=== PATIENT | male | born 1965 | race Hispanic/Latino ===

== ENCOUNTER 2018-07-23 12:47 | Inpatient (IN) | payer MEDICAID, OTHER ==
[2018-07-23 12:52] VITALS: BMI 26.4
[2018-07-23] MEDS ORDERED: Albuterol-Ipratrop 3 mg / 0.5 (3 ml) UD IH STA (13:25)
[2018-07-23] MEDS ORDERED: MethylPREDNISolone 40 mg Vial IM STA (13:25)
--- NOTE | 2018-07-23 13:25 | ED PDOC ---
Arrival/HPI - General Chief Complaint: Shortness Of Breath Time Seen by Provider: 07/23/18 12:52 Historian: Patient - History of Present Illness Narrative History of Present Illness (Text): 07/23/18 13:21 A 53 y/o w/ h/o COPD, presents to the emergency department complaining of persistent shortness of breath and chest tightness for 1 day. Patient reports he tried using his rescue inhaler but has had no relief. He denies no recent use of steroids or exposure to sick contacts. Patient notes also experiencing occasional chills, however denies fever or any other complaints at this time. No PMD Time/Duration: 24 hours Symptom Onset: Sudden Symptom Course: Worsening Quality: Tightness Severity Level: Moderate Activities at Onset: Rest Context: Home Past Medical History - Provider Review Nursing Documentation Reviewed: Yes - Travel History Have you recently traveled outside [place] w/in the past 3 mons?: No - Infectious Disease Hx of Infectious Diseases: None - Tetanus Immunization Tetanus Immunization: Unknown - Past Medical History Past Medical History: Non-Contributing - Cardiac Hx Cardiac Disorders: No - Pulmonary Hx Respiratory Disorders: Yes Hx Chronic Obstructive Pulmonary Disease (COPD): Yes Hx Emphysema: Yes Hx Pneumonia: Yes Hx Sleep Apnea: Yes - Neurological Hx Neurological Disorder: No - HEENT Hx HEENT Disorder: No - Renal Hx Renal Disorder: No Hx Dialysis: No - Endocrine/Metabolic Hx Endocrine Disorders: No - Hematological/Oncological Hx Blood Disorders: No - Integumentary Hx Dermatological Disorder: No - Musculoskeletal/Rheumatological Hx Musculoskeletal Disorders: Yes Hx Back Pain: Yes Hx Falls: No - Gastrointestinal Hx Gastrointestinal Disorders: No - Genitourinary/Gynecological Hx Genitourinary Disorders: No Hx Sexually Transmitted Diseases: No - Psychiatric Hx Psychophysiologic Disorder: Yes Hx Depression: Yes Hx Substance Use: Yes (use heroin Occasionally) - Past Surgical History Past Surgical History: No Previous - Anesthesia Hx Anesthesia: No - Suicidal Assessment Feels Threatened In Home Enviroment: No Family/Social History - Physician Review Nursing Documentation Reviewed: Yes Family/Social History: No Known Family HX Smoking Status: Current Some Days Smoker Hx Alcohol Use: Yes Amount per day: 12 Hx Substance Use: Yes (use heroin Occasionally) Substance used: HEROIN Hx Substance Use Treatment: Yes (had detox) Allergies/Home Meds Allergies/Adverse Reactions: Allergies No Known Allergies Allergy (Verified 07/23/18 18:57) Review of Systems - Physician Review All systems were reviewed & negative as marked: Yes - Review of Systems Constitutional: Night Sweats. absent: Fevers Respiratory: SOB Cardiovascular: Other (chest tightness) Physical Exam Vital Signs Reviewed: Yes Vital Signs Temp Pulse Resp BP Pulse Ox 07/23/18 17:31 98.0 F 83 18 97 07/23/18 17:05 98.0 F 84 19 132/80 97 07/23/18 13:24 98.2 F 82 19 132/79 94 L 07/23/18 12:53 20 97 Pulse: Tachycardic Respiratory Rate: Tachypneic - Systems Exam Head: Present: Atraumatic, Normocephalic Pupils: Present: PERRL Extroacular Muscles: Present: EOMI Conjunctiva: Present: Normal Mouth: Present: Moist Mucous Membranes Respiratory/Chest: Present: Wheezes (expiratory and inspiratory bilaterally), Rhonchi, Tachypneic Cardiovascular: Present: Tachycardic Abdomen: No: Tenderness, Distention, Peritoneal Signs Upper Extremity: Present: Normal Inspection. No: Cyanosis, Edema Lower Extremity: Present: Normal Inspection. No: Edema Neurological: Present: GCS=15, CN II-XII Intact, Speech Normal Skin: Present: Warm, Dry, Normal Color. No: Rashes Psychiatric: Present: Alert, Oriented x 3, Normal Insight, Normal Concentration Medical Decision Making ED Course and Treatment: 07/23/18 13:25 Impression: 53 year old male with shortness of breath and chest tightness Plan: -- Chest X-ray -- Labs -- Duoneb -- Zithromax -- SOLU-Medrol -- Reassess and disposition Progress Notes: 07/23/2018 13:56 Chest X-ray IMPRESSION: No active disease. Dictator: Vick Peck MD 07/23/18 15:30 Patient reassessed after 3 nebulizer treatments, reporting minimal change in respiratory status. Expiratory wheezes auscultated b/l in anterior lung noe. Will administer additional nebulizer treatment. Case discussed with Dr. Art, who accepts patient under her service. Patient will be admitted under Observation w/ telemetry. - Lab Interpretations Lab Results: 07/24/18 06:30 07/24/18 10:30 Lab Results 07/24/18 10:30: Potassium 4.3 07/24/18 06:30: Sodium 139, Potassium 5.6 H*, Chloride 102, Carbon Dioxide 24, Anion Gap 18, BUN 11, Creatinine 0.6 L, Est GFR ( Amer) > 60, Est GFR ( Non-Af Amer) > 60, Random Glucose 181 H, Calcium 10.4, Phosphorus 4.2, Magnesium 1.8, Total Bilirubin 0.6, AST 23, ALT 29, Alkaline Phosphatase 59, Total Protein 7.7, Albumin 4.8, Globulin 2.9, Albumin/Globulin Ratio 1.7 07/24/18 06:30: APTT 29.6 07/24/18 06:30: WBC 12.4 H D, RBC 4.66, Hgb 14.2, Hct 42.4, MCV 91.0, MCH 30.5, MCHC 33.5, RDW 14.5, Plt Count 428, MPV 9.6, Gran % 88.2 H, Lymph % (Auto) 7.5 L , [place] % (Auto) 4.2, Eos % (Auto) 0.0 L, Baso % (Auto) 0.1, Gran # 10.98 H, Lymph # (Auto) 0.9 L, [place] # (Auto) 0.5, Eos # (Auto) 0.0, Baso # (Auto) 0.01 07/23/18 21:11: Alcohol, Quantitative < 10 07/23/18 19:55: Phosphorus 3.9, Magnesium 1.6 L 07/23/18 14:35: Sodium 140, Potassium 4.7, Chloride 102, Carbon Dioxide 25, Anion Gap 19, BUN 7, Creatinine 0.7 L, Est GFR ( Amer) > 60, Est GFR (Non -Af Amer) > 60, Random Glucose 102, Calcium 10.3, Magnesium 1.7, Total Bilirubin 0.7, AST 38, ALT 31, Alkaline Phosphatase 64, Troponin I < 0.01, Total Protein 8.4 H, Albumin 5.1 H, Globulin 3.3, Albumin/Globulin Ratio 1.5 07/23/18 14:35: WBC 7.4, RBC 4.61, Hgb 14.2, Hct 41.8 L, MCV 90.7, MCH 30.8, MCHC 34.0, RDW 14.5, Plt Count 416, MPV 9.2, Gran % 72.8 H, Lymph % (Auto) 16.9 L, [place] % (Auto) 9.1 H, Eos % (Auto) 0.4 L, Baso % (Auto) 0.8, Gran # 5.39, Lymph # (Auto) 1.3, [place] # (Auto) 0.7 H, Eos # (Auto) 0.0, Baso # (Auto) 0.06 I have reviewed the lab results: Yes - RAD Interpretation Radiology Orders: 07/23/18 13:25 CHEST PORTABLE [RAD] Stat - Medication Orders Current Medication Orders: Discontinued Medications Albuterol Sulfate (Albuterol 0.083% Inhal Joanne (2.5 Mg/3 Ml) Ud) 2.5 mg INH STAT STA Stop: 07/23/18 15:05 Last Admin: 07/23/18 15:19 Dose: 2.5 mg Albuterol/Ipratropium (Duoneb 3 Mg/0.5 Mg (3 Ml) Ud) 3 ml IH STAT STA Stop: 07/23/18 13:26 Last Admin: 07/23/18 15:00 Dose: 3 ml Albuterol/Ipratropium (Duoneb 3 Mg/0.5 Mg (3 Ml) Ud) 3 ml IH Q2H PRN PRN Reason: Shortness of Breath Albuterol/Ipratropium (Duoneb 3 Mg/0.5 Mg (3 Ml) Ud) 3 ml IH [id number] [facility] Last Admin: 07/27/18 08:04 Dose: 3 ml Azithromycin (Zithromax) 500 mg PO STAT STA PRN Reason: Protocol Stop: 07/23/18 13:26 Last Admin: 07/23/18 15:19 Dose: 500 mg Azithromycin (Zithromax) 500 mg PO DAILY [facility] Last Admin: 07/27/18 09:44 Dose: 500 mg Folic Acid (Folic Acid) 1 mg PO DAILY [facility] Last Admin: 07/27/18 09:44 Dose: 1 mg Guaifenesin (Mucinex La) 600 mg PO BID [facility] Last Admin: 07/27/18 09:44 Dose: 600 mg Heparin Sodium (Porcine) (Heparin) 5,000 units SC Q12 ADRIAN PRN Reason: Protocol Heparin Sodium (Porcine) (Heparin) 5,000 units SC Q8 ADRIAN PRN Reason: Protocol Last Admin: 07/27/18 05:08 Dose: 5,000 units Subcutaneous Administrations Document 07/27/18 05:08 OLIVD (Rec: 07/27/18 05:08 OLIVD [email or web address]) Injection Site MAR Injection Site Right Abdomen Charges for Administration # of Subcutaneous Administrations 1 Folic Acid 1 mg/ Thiamine HCl 100 mg/ Multivitamins/Vitamin C 10 ml/ Dextrose 1 ,011.2 mls @ 100 mls/hr IV .Q10H7M ADRIAN Stop: 07/24/18 12:58 Last Admin: 07/24/18 10:18 Dose: 100 mls/hr eMAR Start Stop Document 07/24/18 10:18 CD (Rec: 07/24/18 10:18 CD [id number]) Intravenous Solution Start Date 07/24/18 Start Time 10:18 Azithromycin (Zithromax 500mg In Ns) 500 mg in 250 mls @ 167 mls/hr IVPB DAILY ADRIAN PRN Reason: Protocol Last Admin: 07/26/18 10:48 Dose: 167 mls/hr eMAR Start Stop Document 07/26/18 10:48 VS (Rec: 07/26/18 10:49 VS [id number]) Intravenous Solution Start Date 07/26/18 Start Time 10:48 End Date 07/26/18 End time 12:18 Total Infusion Time 90 Lorazepam (Ativan) 1 mg IVP Q6 ADRIAN PRN Reason: Protocol Last Admin: 07/24/18 12:38 Dose: 1 mg IVP Administration Document 07/24/18 12:38 CD (Rec: 07/24/18 12:38 CD [place] [id number]) Charges for Administration # of IVP Administrations 1 Behavioural Document 07/24/18 12:38 CD (Rec: 07/24/18 12:38 CD [place] [id number]) Maintenance Maintenance Dose No Nonmedicinal Nonmedicinal Interventions Therapeutic Communication Behavior Behavior for Medication: Continuous pacing/restlessness Re-Assess: Reassess Psych Meds Document 07/24/18 13:08 CD (Rec: 07/24/18 13:46 CD [place] [id number]) Reassess Psych Med Effective Lorazepam (Ativan) 1 mg IVP Q8H PRN; Protocol PRN Reason: Symptoms of alcohol withdrawl Lorazepam (Ativan) 1 mg IVP Q8 ADRIAN PRN Reason: Protocol Last Admin: 07/25/18 06:45 Dose: 1 mg IVP Administration Document 07/25/18 06:45 LGA (Rec: 07/25/18 06:45 LGA [id number]) Charges for Administration # of IVP Administrations 1 Behavioural Document 07/25/18 06:45 LGA (Rec: 07/25/18 06:45 LGA [id number]) Maintenance Maintenance Dose Yes Nonmedicinal Nonmedicinal Interventions Redirect Therapeutic Communication Activity Behavior Behavior for Medication: Anxiety Continuous pacing/restlessness Insomnia Re-Assess: Reassess Psych Meds Document 07/25/18 07:15 CD (Rec: 07/25/18 08:13 CD [facility] [id number]) Reassess Psych Med Effective Lorazepam (Ativan) 1 mg IVP Q6H PRN; Protocol PRN Reason: Symptoms of alcohol withdrawl Last Admin: 07/25/18 13:46 Dose: 1 mg IVP Administration Document 07/25/18 13:46 CD (Rec: 07/25/18 13:46 CD [id number]) Charges for Administration # of IVP Administrations 1 Behavioural Document 07/25/18 13:46 CD (Rec: 07/25/18 13:46 CD [id number]) Nonmedicinal Nonmedicinal Interventions Activity Behavior Behavior for Medication: Anxiety Re-Assess: Reassess Psych Meds Document 07/25/18 14:16 CD (Rec: 07/25/18 14:[address] [facility] [id number]) Reassess Psych Med Effective Methylprednisolone (Solu-Medrol) 125 mg IM STAT STA Stop: 07/23/18 13:30 Last Admin: 07/23/18 15:19 Dose: 125 mg IM Administration Charges Document 07/23/18 15:19 SZA (Rec: 07/23/18 15:19 SZA [id number]) Charges for Administration # of IM Administrations 1 Methylprednisolone (Solu-Medrol) 40 mg IVP Q8 [facility] Last Admin: 07/25/18 06:45 Dose: 40 mg IVP Administration Document 07/25/18 06:45 LGA (Rec: 07/25/18 06:45 LGA [id number]) Charges for Administration # of IVP Administrations 1 Methylprednisolone (Solu-Medrol) 40 mg IVP Q12 ADRIAN Last Admin: 07/27/18 09:43 Dose: 40 mg IVP Administration Document 07/27/18 09:43 [id number] (Rec: 07/27/18 09:43 SOUSV [email or web address]) Charges for Administration # of IVP Administrations 1 Montelukast Sodium (Singulair) 10 mg PO HS [facility] Last Admin: 07/26/18 21:28 Dose: 10 mg Multivitamins (Thera Tab) 1 tab PO DAILY [facility] Last Admin: 07/27/18 09:44 Dose: 1 tab Nicotine (Nicoderm Cq) 1 patch TD DAILY [facility] Last Admin: 07/27/18 09:44 Dose: 1 patch MAR Transdermal Patch Site Document 07/27/18 09:44 [email or web address] (Rec: 07/27/18 09:44 SOUSV [email or web address]) Transdermal Patch Site Transdermal Patch Site Right Shoulder Ondansetron HCl (Zofran Inj) 4 mg IVP Q4H PRN PRN Reason: Nausea/Vomiting Pantoprazole Sodium (Protonix Ec Tab) 40 mg PO 0600 [facility] Last Admin: 07/27/18 05:08 Dose: 40 mg Pneumococcal Polyvalent Vaccine (Pneumovax 23 Vaccine) 0.5 ml IM .ONCE ONE Stop: 07/23/18 20:48 Thiamine HCl (Vitamin B1 Tab) 100 mg PO DAILY [facility] Last Admin: 07/27/18 09:44 Dose: 100 mg - Scribe Statement The provider has reviewed the documentation as recorded by the Ronaldo Camilo Provider Scribe Provider Scribe Attestation: All medical record entries made by the Ronaldo were at my direction and personally dictated by me. I have reviewed the chart and agree that the record accurately reflects my personal performance of the history, physical exam, medical decision making, and the department course for this patient. I have also personally directed, reviewed, and agree with the discharge instructions and disposition. Disposition/Present on Arrival - Present on Arrival Any Indicators Present on Arrival: No History of DVT/PE: No History of Uncontrolled Diabetes: No Urinary Catheter: No History of Decub. Ulcer: No History Surgical Site Infection Following: None - Disposition Have Diagnosis and Disposition been Completed?: Yes Diagnosis: COPD exacerbation Disposition: HOSPITALIZED Disposition Time: 15:30 Patient Plan: Observation Condition: GOOD
--- NOTE | 2018-07-23 13:58 | RAD ---
Date of service: 07/23/2018 HISTORY: sob COMPARISON: 05/29/2015 FINDINGS: LUNGS: No active pulmonary disease. PLEURA: No significant pleural effusion identified, no pneumothorax apparent. CARDIOVASCULAR: Normal. OSSEOUS STRUCTURES: No significant abnormalities. VISUALIZED UPPER ABDOMEN: Normal. OTHER FINDINGS: None. IMPRESSION: No active disease.
[2018-07-23 14:50] LABS: BASO # 0.06 K/mm3 (0.0-2.0); BASO % 0.8 % (0.0-3.0); EOS % 0.4 % (1.5-5.0); GRAN # 5.39 (1.4-6.5); GRAN % 72.8 % (50.0-68.0); HEMOGLOBIN 14.2 g/dL (14.0-18.0); LYMPH # 1.3 (1.2-3.4); LYMPH % 16.9 % (22.0-35.0); MEAN CELL VOLUME 90.7 fl (80.0-105.0); MEAN CORPUSCULAR HEMOGLOBIN 30.8 pg (25.0-35.0); MEAN PLATELET VOLUME 9.2 fl (7.0-11.0); MONO # 0.7 (0.1-0.6); MONO % 9.1 % (1.0-6.0); RBC 4.61 10^6/uL (3.5-6.1); RED CELL DISTRIBUTION WIDTH 14.5 % (11.5-14.5); WHITE BLOOD COUNT 7.4 10^3/ul (4.5-11.0)
[2018-07-23 15:03] LABS: ALB/GLOB RATIO 1.5 (1.1-1.8); ALBUMIN 5.1 g/dL (3.0-4.8); ALT/SGPT 31 U/L (7-56); AST/SGOT 38 U/L (17-59); BLOOD UREA NITROGEN 7 mg/dL (7-21); CALCIUM 10.3 mg/dL (8.4-10.5); GFR NON-AFRICAN AMERICAN > 60
[2018-07-23] MEDS ORDERED: Albuterol 0.083% Inhal Sol (2.5 mg/3 mL) UD INH STA (15:04)
[2018-07-23 15:13] LABS: TROPONIN I < 0.01 ng/mL
[2018-07-23] MEDS ORDERED: Albuterol-Ipratrop 3 mg / 0.5 (3 ml) UD IH PRN (16:40)
--- NOTE | 2018-07-23 18:04 | CP.PCM.HP ---
<Bobo Medina - Last Filed: 07/23/18 18:21> History of Present Illness - History of Present Illness History of Present Illness: Bobo Medina DO PGY-1, Senior Marketing Manager Medicine History and Physical 53 y o male PMhx COPD, EtOH, smoking and heroin abuse, presents to the ED today c/o 1 day history of worsening shortness of breath and chest tightness. Pt states that he tried using Ventolin rescue inhaler at home 3 times for symptoms without relief, thus decided to come to the ED. Reports feeling short of breath after walking 10 blocks outside. Denies hx of sick contacts or recent travel. Denies fever or chills. Reports productive cough with "[place]green" sputum since yesterday. Admits to associated lightheadedness. Denies headache, chest pain, n/ v/d/c, abd pain, urinary complaints, or other symptoms. No prior hx of intubations. PMhx: COPD, EtOH abuse, smoker, prior heroin abuse PSurgHx: none Allergies: NKDA Meds: Ventolin inhaler, Fluticasone, Ambien, Singulair Fam hx: Unremarkable cardiac hx or hx of malignancies Soc hx: Smokes 10 cigarettes/day, cut down from 1 ppd for 30 y, drinks (6) 24 oz beers almost every day (last drink was yesterday as per patient), former heroin use (used to snort drug) PMD: Dr. West ([place]); does not follow with hardware trainer outpatient 12-point ROS obtained, as per HPI, otherwise negative as per patient. Present on Admission - Present on Admission Any Indicators Present on Admission: No Review of Systems - Constitutional Constitutional: Fatigue, Weakness. absent: Chills, Fever - EENT Nose/Mouth/Throat: absent: Epistaxis, Nasal Congestion, Nasal Discharge, Post Nasal Drip, Sinus Pain, Hoarsness, Odynophagia, Sore Throat - Cardiovascular Cardiovascular: Dyspnea on Exertion. absent: Chest Pain, Edema, Pain Radiating to Arm/Neck/Jaw, Palpitations, Paroxysmal Nocturnal Dyspnea, Pedal Edema - Respiratory Respiratory: Cough, Dyspnea, Dyspnea on Exertion, Wheezing, Chest Congestion, Excessive Mucous Production - Gastrointestinal Gastrointestinal: absent: Abdominal Pain, Change in Bowel Habits, Constipation, Diarrhea, Vomiting - Genitourinary Genitourinary: absent: Dysuria, Flank Pain, Hematuria, Urinary Incontinence, Urinary Frequency, Urinary Urgency Past Patient History - Infectious Disease Hx of Infectious Diseases: None - Tetanus Immunizations Tetanus Immunization: Unknown - Past Medical History & Family History Past Medical History?: Yes - Past Social History Smoking Status: Current Some Days Smoker - CARDIAC Hx Cardiac Disorders: No - PULMONARY Hx Respiratory Disorders: Yes Hx Chronic Obstructive Pulmonary Disease (COPD): Yes Hx Emphysema: Yes Hx Pneumonia: Yes Hx Sleep Apnea: Yes - NEUROLOGICAL Hx Neurological Disorder: No - HEENT Hx HEENT Problems: No - RENAL Hx Chronic Kidney Disease: No Hx Dialysis: No - ENDOCRINE/METABOLIC Hx Endocrine Disorders: No - HEMATOLOGICAL/ONCOLOGICAL Hx Blood Disorders: No - INTEGUMENTARY Hx Dermatological Problems: No - MUSCULOSKELETAL/RHEUMATOLOGICAL Hx Musculoskeletal Disorders: Yes Hx Back Pain: Yes Hx Falls: No - GASTROINTESTINAL Hx Gastrointestinal Disorders: No - GENITOURINARY/GYNECOLOGICAL Hx Genitourinary Disorders: No Hx Sexually Transmitted Disorders: No - PSYCHIATRIC Hx Psychophysiologic Disorder: Yes Hx Depression: Yes Hx Substance Use: Yes (use heroin Occasionally) - SURGICAL HISTORY Hx Surgeries: No - ANESTHESIA Hx Anesthesia: No Meds Allergies/Adverse Reactions: Allergies Allergy/AdvReac Type Severity Reaction Status Date / Time No Known Allergies Allergy Verified 07/23/18 18:57 Physical Exam - Constitutional Appears: Non-toxic, No Acute Distress - Head Exam Head Exam: ATRAUMATIC, NORMAL INSPECTION - Eye Exam Eye Exam: EOMI, Normal appearance, PERRL - ENT Exam ENT Exam: Mucous Membranes Moist, Normal Oropharynx - Neck Exam Neck exam: Positive for: Full Rom, Normal Inspection - Respiratory Exam Respiratory Exam: NORMAL BREATHING PATTERN Additional comments: Coarse breath sounds and wheezing heard diffusely in all lung noe - Cardiovascular Exam Cardiovascular Exam: REGULAR RHYTHM, +S1, +S2 - GI/Abdominal Exam GI & Abdominal Exam: Normal Bowel Sounds, Soft. absent: Tenderness - Extremities Exam Extremities exam: Positive for: full ROM, normal capillary refill, normal inspection, pedal pulses present - Back Exam Back exam: FULL ROM, NORMAL INSPECTION - Neurological Exam Neurological exam: Alert, CN II-XII Intact, Normal Gait, Oriented x3, Reflexes Normal - Psychiatric Exam Psychiatric exam: Normal Affect, Normal Mood - Skin Skin Exam: Dry, Intact, Normal Color, Warm Results - Vital Signs Recent Vital Signs: Last Vital Signs Temp 98.0 F 07/23/18 17:31 Pulse 83 07/23/18 17:31 Resp 18 07/23/18 17:31 BP 132/80 07/23/18 17:05 Pulse Ox 97 07/23/18 17:31 - Labs Result Diagrams: 07/23/18 14:35 07/23/18 14:35 Assessment & Plan - Assessment and Plan (Free Text) Assessment: 53M PMhx COPD, EtOH abuse, smoking, former heroin abuse, presents with shortness of breath and chest tightness, likely 2/2 to COPD exacerbation. Pt also being medically managed for EtOH withdrawal. Plan: COPD exacerbation/acute bronchitis S/p duoneb tx in ED with some relief of symptoms CXR in ED demonstrated no active disease Zithromax 500 mg IVPB daily Duonebs q 2 prn, and q 6 h janine for shortness of breath Solu-Medrol 40 mg q 8 h IVP Singulair 10 mg PO daily EtOH withdrawal CIWA protocol Ativan 1 mg q 6 h Ativan 1 mg q 8 h prn withdrawal symptoms Zofran prn for nausea F/u Mg and P levels, replete as needed Alcohol level pending Current smoker Nicotine patch Hx heroin abuse Urine drug screen pending DVT/GI ppx: Heparin q 8 h/Protonix Pt seen, examined with, and plan discussed with Dr. Art, attending. Bobo Medina DO PGY-1, Senior Marketing Manager Pager #[phone] <Norma Art R - Last Filed: 07/24/18 15:51> Results - Vital Signs Recent Vital Signs: Last Vital Signs Temp 98.7 F 07/24/18 12:00 Pulse 82 07/24/18 14:00 Resp 21 07/24/18 12:00 BP 123/81 07/24/18 12:00 Pulse Ox 95 07/24/18 06:00 - Labs Result Diagrams: 07/24/18 06:30 07/24/18 10:30 Labs: Laboratory Results - last 24 hr 07/23/18 07/23/18 07/24/18 19:55 21:11 06:30 WBC 12.4 H D RBC 4.66 Hgb 14.2 Hct 42.4 MCV 91.0 MCH 30.5 MCHC 33.5 RDW 14.5 Plt Count 428 MPV 9.6 Gran % 88.2 H Lymph % (Auto) 7.5 L [place] % (Auto) 4.2 Eos % (Auto) 0.0 L Baso % (Auto) 0.1 Gran # 10.98 H Lymph # (Auto) 0.9 L [place] # (Auto) 0.5 Eos # (Auto) 0.0 Baso # (Auto) 0.01 APTT Sodium Potassium Chloride Carbon Dioxide Anion Gap BUN Creatinine Est GFR ( Amer) Est GFR (Non-Af Amer) Random Glucose Calcium Phosphorus 3.9 Magnesium 1.6 L Total Bilirubin AST ALT Alkaline Phosphatase Total Protein Albumin Globulin Albumin/Globulin Ratio Alcohol, Quantitative < 10 07/24/18 07/24/18 07/24/18 06:30 06:30 10:30 WBC RBC Hgb Hct MCV MCH MCHC RDW Plt Count MPV Gran % Lymph % (Auto) [place] % (Auto) Eos % (Auto) Baso % (Auto) Gran # Lymph # (Auto) [place] # (Auto) Eos # (Auto) Baso # (Auto) APTT 29.6 Sodium 139 Potassium 5.6 H* 4.3 Chloride 102 Carbon Dioxide 24 Anion Gap 18 BUN 11 Creatinine 0.6 L Est GFR ( Amer) > 60 Est GFR (Non-Af Amer) > 60 Random Glucose 181 H Calcium 10.4 Phosphorus 4.2 Magnesium 1.8 Total Bilirubin 0.6 AST 23 ALT 29 Alkaline Phosphatase 59 Total Protein 7.7 Albumin 4.8 Globulin 2.9 Albumin/Globulin Ratio 1.7 Alcohol, Quantitative Attending/Attestation - Attestation I have personally seen and examined this patient.: Yes I have fully participated in the care of the patient.: Yes I have reviewed all pertinent clinical information: Yes Notes (Text): Patient seen and examined by me at 5PM with resident 07/23/18. Case including HPI , physical exam, and assessment and plan discussed with resident. Agree with above with following additions/corrections. Patient is a 53 year old male with past medical history significant for COPD, tobacco abuse, alcohol abuse, and heroin abuse that presented to the emergency room with shortness of breath and chest tightness to begin yesterday (07/22/18) and became worse today. Patient states that he noticed that he was a little bit out of breath yesterday and had "[place] green phlegm." He states this morning he woke up and got out of bed and tried to walk approximately 5 blocks at which time he felt like he couldn't breathe. He then came to the hospital. He states that he tried Ventolin and Advair with no relief. Complains of productive cough with "[place]green" phlegm. Patient states is also having some chest tightness and lightheadedness with this. He denies any chest pain. No headaches or dizziness. No nausea, vomiting, or abdominal pain. No fevers or chills. No dysuria. No diarrhea or constipation. Patient states that he does drink 5-6 24 ounce cans of beer daily. He states his last drink was yesterday and he does tend to withdraw when he does not drink. 12 point review of systems reviewed by me. Please see above HPI. All other systems negative Family history. Mother of brain aneursym. Father and had history of ETOH and tobacco abuse. Physical exam: General: Awake and alert, lying in bed in no acute distress HEENT: Normocephalic, atraumatic. Extraocular muscles intact. No scleral icterus. Oropharynx is pink and moist. No pharyngeal erythema or exudate appreciated. Neck is supple. Cardiovascular: Normal rhythm. Normal S1, S2. No murmurs, rubs, or gallops appreciated Pulmonary: Normal respiratory effort. Positive rhonchi and wheezing throughout. No rales appreciated. Gastrointestinal: Soft, nondistended, nontender. Positive bowel sounds all 4 quadrants, no guarding. Musculoskeletal: Moves all extremities, no calf tenderness, no edema appreciated Central nervous system: CN2-12 grossly intact. AAO x 3, positive tremors noted in upper extremities Dermatologic: Skin warm and dry Assessment and plan: Patient is a 53 year old male with past medical history significant for COPD, tobacco abuse, alcohol abuse, and heroin abuse that presented to the emergency room with shortness of breath and chest tightness. 1. COPD exacerbation. Placed on Solu-Medrol and nebulizer treatment. Patient counseled on tobacco cessation. Placed on Zithromax for possible bronchitis as patient is having productive cough. Continue home Singulair 2. ETOH use/withdrawal. Placed on CIWA protocol. Placed on Ativan. Continue with banana bag. Thiamine, folic acid, multivitamin. Counseled on cessation. Monitor for withdrawal symptoms. 3. Tobacco acute. Counseled on cessation 4. GI/DVT prophylaxis. Protonix and heparin 5. Patient is a full code. Case was discussed in detail with patient regarding current diagnosis and treatment plan.
[2018-07-23] MEDS: Albuterol-Ipratrop 3 mg / 0.5 (3 ml) UD IH SCH (20:03)
[2018-07-23] MEDS: Folic Acid 1 MG, Thiamine 100 MG, Multivitamin (MVI) 10 ML in Dextrose 5% In Water 1,00... IV SCH (20:40)
[2018-07-23] MEDS ORDERED: Pneumococcal 23-Valent Vaccine IM ONE (20:47)
[2018-07-23] MEDS: MethylPREDNISolone 40 mg Vial IVP SCH (21:55)
[2018-07-24] MEDS: Albuterol-Ipratrop 3 mg / 0.5 (3 ml) UD IH SCH ×4 (02:45→19:50)
[2018-07-24] MEDS: MethylPREDNISolone 40 mg Vial IVP SCH ×3 (06:56→22:28)
[2018-07-24] MEDS: Pantoprazole 40 mg EC Tab PO SCH (06:57)
[2018-07-24 07:36] LABS: BASO # 0.01 K/mm3 (0.0-2.0); BASO % 0.1 % (0.0-3.0); GRAN # 10.98 (1.4-6.5); GRAN % 88.2 % (50.0-68.0); HEMOGLOBIN 14.2 g/dL (14.0-18.0); LYMPH # 0.9 (1.2-3.4); LYMPH % 7.5 % (22.0-35.0); MEAN CORPUSCULAR HEMOGLOBIN 30.5 pg (25.0-35.0); MEAN CORPUSCULAR HGB CONC 33.5 g/dl (31.0-37.0); MEAN PLATELET VOLUME 9.6 fl (7.0-11.0); MONO # 0.5 (0.1-0.6); MONO % 4.2 % (1.0-6.0); RBC 4.66 10^6/uL (3.5-6.1); RED CELL DISTRIBUTION WIDTH 14.5 % (11.5-14.5); WHITE BLOOD COUNT 12.4 10^3/ul (4.5-11.0)
[2018-07-24 08:21] LABS: ALB/GLOB RATIO 1.7 (1.1-1.8); ALBUMIN 4.8 g/dL (3.0-4.8); ALT/SGPT 29 U/L (7-56); AST/SGOT 23 U/L (17-59); BLOOD UREA NITROGEN 11 mg/dL (7-21); CALCIUM 10.4 mg/dL (8.4-10.5); GFR NON-AFRICAN AMERICAN > 60
[2018-07-24] MEDS: Azithromycin 500MG/NS 250ml 500 MG/250 ML BAG IVPB SCH (10:09)
--- NOTE | 2018-07-24 10:15 | CARD ---
APPROVED REPORT Date of service: 07/23/2018 EKG Measurement Heart [id number] <Conclusion> Sinus tachycardia Possible Left atrial enlargement Borderline ECG
[2018-07-24] MEDS: Folic Acid 1 MG, Thiamine 100 MG, Multivitamin (MVI) 10 ML in Dextrose 5% In Water 1,00... IV SCH (10:18)
[2018-07-24] MEDS: guaiFENesin 600 mg ER Tab PO SCH ×2 (12:38→17:39)
--- NOTE | 2018-07-24 18:08 | CP.PCM.PN ---
<Sean Vargas - Last Filed: 07/24/18 18:04> Subjective - Date & Time of Evaluation Date of Evaluation: 07/24/18 Time of Evaluation: 18:04 - Subjective Subjective: Sean Vargas, PGY-1 Progress Note for Hospitalist Service Patient seen and examined at bedside this morning. No acute events overnight. Patient states his shortness of breath is significantly improved from yesterday. Denies CP, abdominal pain, headaches, urinary complaints, back pain and swelling. Objective - Vital Signs/Intake and Output Vital Signs (last 24 hours): Temp Pulse Resp BP Pulse Ox 98.7 F 82 21 123/81 95 07/24/18 12:00 07/24/18 14:00 07/24/18 12:00 07/24/18 12:00 07/24/18 06:00 Intake and Output: 07/24/18 07/24/18 06:59 18:59 Intake Total 1440 Output Total 300 Balance 1140 - Medications Medications: Current Medications Albuterol/Ipratropium (Duoneb 3 Mg/0.5 Mg (3 Ml) Ud) 3 ml IH Q2H PRN PRN Reason: Shortness of Breath Albuterol/Ipratropium (Duoneb 3 Mg/0.5 Mg (3 Ml) Ud) 3 ml IH [id number] [facility] Last Admin: 07/24/18 14:38 Dose: 3 ml Folic Acid (Folic Acid) 1 mg PO DAILY [facility] Guaifenesin (Mucinex La) 600 mg PO BID [facility] Last Admin: 07/24/18 17:39 Dose: 600 mg Heparin Sodium (Porcine) (Heparin) 5,000 units SC Q8 [facility] PRN Reason: Protocol Last Admin: 07/24/18 13:28 Dose: 5,000 units Azithromycin (Zithromax 500mg In Ns) 500 mg in 250 mls @ 167 mls/hr IVPB DAILY [facility] PRN Reason: Protocol Last Admin: 07/24/18 10:09 Dose: 167 mls/hr Lorazepam (Ativan) 1 mg IVP Q8 [facility] PRN Reason: Protocol Lorazepam (Ativan) 1 mg IVP Q6H PRN; Protocol PRN Reason: Symptoms of alcohol withdrawl Last Admin: 07/24/18 17:39 Dose: 1 mg Methylprednisolone (Solu-Medrol) 40 mg IVP Q8 [facility] Last Admin: 07/24/18 13:27 Dose: 40 mg Montelukast Sodium (Singulair) 10 mg PO HS [facility] Last Admin: 07/23/18 21:54 Dose: 10 mg Multivitamins (Thera Tab) 1 tab PO DAILY [facility] Nicotine (Nicoderm Cq) 1 patch TD DAILY [facility] Last Admin: 07/24/18 10:09 Dose: 1 patch Ondansetron HCl (Zofran Inj) 4 mg IVP Q4H PRN PRN Reason: Nausea/Vomiting Pantoprazole Sodium (Protonix Ec Tab) 40 mg PO 0600 [facility] Last Admin: 07/24/18 06:57 Dose: 40 mg Thiamine HCl (Vitamin B1 Tab) 100 mg PO DAILY [facility] - Labs Labs: 07/24/18 06:30 07/24/18 10:30 APTT 29.6 Seconds (25.1-36.5) 07/24/18 06:30 - Constitutional Appears: No Acute Distress - Head Exam Head Exam: ATRAUMATIC, NORMOCEPHALIC - Eye Exam Eye Exam: EOMI Pupil Exam: PERRL - ENT Exam ENT Exam: Mucous Membranes Moist - Respiratory Exam Additional comments: B/L expiratory wheezes appreciated in upper and lower lung noe - Cardiovascular Exam Cardiovascular Exam: REGULAR RHYTHM, +S1, +S2 - GI/Abdominal Exam GI & Abdominal Exam: Soft, Normal Bowel Sounds. absent: Guarding, Rigid - Extremities Exam Extremities Exam: Normal Inspection. absent: Calf Tenderness - Neurological Exam Neurological Exam: Alert, Awake, Oriented x3 - Skin Skin Exam: Normal Color, Warm Assessment and Plan - Assessment and Plan (Free Text) Assessment: This is a 53 year old with PMH of COPD current smoker, heroin abuse, tobacco abuse and alcohol abuse presenting for management of COPD exacerbation. SOB is improved today, will continue with breathing treatment. COPD exacerbation -currently smoked 10 cigs/day, 30 year history -continue duonebs q6 -continue solumedrol 40mg IVP q8 -continue singulair 10mg PO -SOB improved today Acute Bronchitis -patient admitted to productive cough with yellow/green sputum -cough improved with minimal sputum production today -continue micinex -day 2 azithromax History of alcohol abuse -patient placed on CIWA protocol yesterday -continue with ativan 1 mg IVP q8 -patient not noted to have withdrawal symptoms today -continue with thiamine and folic acid PPX with protonix and heparin Patient seen and discussed with attending, Dr. Art <Norma Art - Last Filed: 07/25/18 08:32> Objective - Vital Signs/Intake and Output Vital Signs (last 24 hours): Temp Pulse Resp BP Pulse Ox 98.4 F 107 H 20 127/82 92 L 07/25/18 06:00 07/25/18 06:00 07/25/18 06:00 07/25/18 06:00 07/25/18 06:00 Intake and Output: 07/25/18 07/25/18 06:59 18:59 Intake Total 420 Output Total 200 Balance 220 - Medications Medications: Current Medications Albuterol/Ipratropium (Duoneb 3 Mg/0.5 Mg (3 Ml) Ud) 3 ml IH Q2H PRN PRN Reason: Shortness of Breath Albuterol/Ipratropium (Duoneb 3 Mg/0.5 Mg (3 Ml) Ud) 3 ml IH [id number] [facility] Last Admin: 07/25/18 07:34 Dose: 3 ml Folic Acid (Folic Acid) 1 mg PO DAILY [facility] Guaifenesin (Mucinex La) 600 mg PO BID [facility] Last Admin: 07/24/18 17:39 Dose: 600 mg Heparin Sodium (Porcine) (Heparin) 5,000 units SC Q8 [facility] PRN Reason: Protocol Last Admin: 07/25/18 06:44 Dose: 5,000 units Azithromycin (Zithromax 500mg In Ns) 500 mg in 250 mls @ 167 mls/hr IVPB DAILY [facility] PRN Reason: Protocol Last Admin: 07/24/18 10:09 Dose: 167 mls/hr Lorazepam (Ativan) 1 mg IVP Q8 [facility] PRN Reason: Protocol Last Admin: 07/25/18 06:45 Dose: 1 mg Lorazepam (Ativan) 1 mg IVP Q6H PRN; Protocol PRN Reason: Symptoms of alcohol withdrawl Last Admin: 07/25/18 01:41 Dose: 1 mg Methylprednisolone (Solu-Medrol) 40 mg IVP Q8 [facility] Last Admin: 07/25/18 06:45 Dose: 40 mg Montelukast Sodium (Singulair) 10 mg PO HS [facility] Last Admin: 07/24/18 22:32 Dose: 10 mg Multivitamins (Thera Tab) 1 tab PO DAILY [facility] Nicotine (Nicoderm Cq) 1 patch TD DAILY [facility] Last Admin: 07/24/18 10:09 Dose: 1 patch Ondansetron HCl (Zofran Inj) 4 mg IVP Q4H PRN PRN Reason: Nausea/Vomiting Pantoprazole Sodium (Protonix Ec Tab) 40 mg PO 0600 [facility] Last Admin: 07/25/18 06:46 Dose: 40 mg Thiamine HCl (Vitamin B1 Tab) 100 mg PO DAILY [facility] - Labs Labs: 07/25/18 08:00 APTT 29.6 Seconds (25.1-36.5) 07/24/18 06:30 Attending/Attestation - Attestation I have personally seen and examined this patient.: Yes I have fully participated in the care of the patient.: Yes I have reviewed all pertinent clinical information, including history, physical exam and plan: Yes Notes (Text): Patient seen and examined by me at 10:40PM with resident 07/24/18. Case including HPI, physical exam, and assessment and plan discussed with resident. Agree with above with following additions/corrections. Patient is a 53 year old male with past medical history significant for COPD, tobacco abuse, alcohol abuse, and heroin abuse that presented to the emergency room with shortness of breath and chest tightness. Patient states he is feeling better today. States shortness of breath and chest tightness has improved today. Still with a productive cough but this is improving. No chest pain. No headaches or dizziness. No nausea, vomiting, or abdominal pain. No fevers or chills. No dysuria. No diarrhea or constipation. Physical exam: General: Awake and alert, lying in bed in no acute distress HEENT: Normocephalic, atraumatic. Extraocular muscles intact. No scleral icterus. Oropharynx is pink and moist. No pharyngeal erythema or exudate appreciated. Neck is supple. Cardiovascular: Normal rhythm. Normal S1, S2. No murmurs, rubs, or gallops appreciated Pulmonary: Normal respiratory effort. Improved coarse breath sounds. Improved wheezing. No rales appreciated. Gastrointestinal: Soft, nondistended, nontender. Positive bowel sounds all 4 quadrants, no guarding. Musculoskeletal: Moves all extremities, no calf tenderness, no edema appreciated Central nervous system: CN2-12 grossly intact. AAO x 3, positive tremors noted in upper extremities Dermatologic: Skin warm and dry Assessment and plan: Patient is a 53 year old male with past medical history significant for COPD, tobacco abuse, alcohol abuse, and heroin abuse that presented to the emergency room with shortness of breath and chest tightness. 1. COPD exacerbation. Acute bronchitis. Afebrile. Continue with Solu-Medrol and nebulizer treatments. Continue with Zithromax. Will add mucinex. Continue home Singulair. Patient counseled on tobacco cessation. 2. EtOH use/withdrawal. Continue CIWA protocol. Continue Ativan, taper off. Continue thiamine, folic acid, multivitamin. Counseled on cessation. Continue to mnitor for withdrawal symptoms. 3. Leukocytosis. Secondary to steroids. Continue to monitor. 4. Tobacco abuse. Counseled on cessation 5. GI/DVT prophylaxis. Protonix and heparin 6. Patient is a full code. Case was discussed in detail with patient regarding current diagnosis and treatment plan.
[2018-07-25] MEDS: Albuterol-Ipratrop 3 mg / 0.5 (3 ml) UD IH SCH ×4 (01:57→19:35)
[2018-07-25] MEDS: MethylPREDNISolone 40 mg Vial IVP SCH ×2 (06:45→22:23)
[2018-07-25] MEDS: Pantoprazole 40 mg EC Tab PO SCH (06:46)
[2018-07-25 08:21] LABS: GRAN # 20.72 (1.4-6.5); GRAN % 91.4 % (50.0-68.0); HEMOGLOBIN 13.6 g/dL (14.0-18.0); LYMPH # 1.3 (1.2-3.4); LYMPH % 5.6 % (22.0-35.0); MEAN CELL VOLUME 91.4 fl (80.0-105.0); MEAN CORPUSCULAR HEMOGLOBIN 30.8 pg (25.0-35.0); MEAN CORPUSCULAR HGB CONC 33.7 g/dl (31.0-37.0); MONO # 0.7 (0.1-0.6); PLATELET COUNT 402 10^3/uL (120.0-450.0); RBC 4.41 10^6/uL (3.5-6.1); RED CELL DISTRIBUTION WIDTH 14.5 % (11.5-14.5); WHITE BLOOD COUNT 22.7 10^3/ul (4.5-11.0)
[2018-07-25 08:43] LABS: ALB/GLOB RATIO 1.7 (1.1-1.8); ALBUMIN 4.7 g/dL (3.0-4.8); ALT/SGPT 29 U/L (7-56); AST/SGOT 34 U/L (17-59); BLOOD UREA NITROGEN 15 mg/dL (7-21); CALCIUM 9.7 mg/dL (8.4-10.5); GFR NON-AFRICAN AMERICAN > 60
[2018-07-25 09:09] LABS: LYMPHOCYTE 8 % (22.0-35.0); MONOCYTE 5 % (1.0-6.0); NEUTROPHIL 87 % (50.0-70.0); PLATELET ESTIMATE NORMAL (NORMAL)
[2018-07-25] MEDS: Azithromycin 500MG/NS 250ml 500 MG/250 ML BAG IVPB SCH (10:03)
[2018-07-25] MEDS: Multivitamin Therapeutic Tab PO SCH (10:04)
[2018-07-25] MEDS: guaiFENesin 600 mg ER Tab PO SCH ×2 (10:04→17:54)
--- NOTE | 2018-07-25 11:31 | CP.PCM.PN ---
<Sean Vargas - Last Filed: 07/25/18 11:28> Subjective - Date & Time of Evaluation Date of Evaluation: 07/25/18 Time of Evaluation: 11:28 - Subjective Subjective: Sean Vargas, PGY-1 Progress Note for Hospitalist Service Patient seen and examined at bedside this morning. No acute events overnight. Patient states his breathing is improved from yesterday but still admits to some SOB at rest. Will decrease solumedrol. Denies CP, abdominal pain, urinary complaints, swelling, hematochezia and headaches. Objective - Vital Signs/Intake and Output Vital Signs (last 24 hours): Temp Pulse Resp BP Pulse Ox 98.4 F 96 H 16 119/72 95 07/25/18 08:00 07/25/18 08:00 07/25/18 08:00 07/25/18 08:00 07/25/18 08:00 Intake and Output: 07/25/18 07/25/18 06:59 18:59 Intake Total 420 Output Total 200 Balance 220 - Medications Medications: Current Medications Albuterol/Ipratropium (Duoneb 3 Mg/0.5 Mg (3 Ml) Ud) 3 ml IH Q2H PRN PRN Reason: Shortness of Breath Albuterol/Ipratropium (Duoneb 3 Mg/0.5 Mg (3 Ml) Ud) 3 ml IH [id number] [facility] Last Admin: 07/25/18 07:34 Dose: 3 ml Folic Acid (Folic Acid) 1 mg PO DAILY [facility] Last Admin: 07/25/18 10:04 Dose: 1 mg Guaifenesin (Mucinex La) 600 mg PO BID [facility] Last Admin: 07/25/18 10:04 Dose: 600 mg Heparin Sodium (Porcine) (Heparin) 5,000 units SC Q8 [facility] PRN Reason: Protocol Last Admin: 07/25/18 06:44 Dose: 5,000 units Azithromycin (Zithromax 500mg In Ns) 500 mg in 250 mls @ 167 mls/hr IVPB DAILY [facility] PRN Reason: Protocol Last Admin: 07/25/18 10:03 Dose: 167 mls/hr Lorazepam (Ativan) 1 mg IVP Q6H PRN; Protocol PRN Reason: Symptoms of alcohol withdrawl Last Admin: 07/25/18 01:41 Dose: 1 mg Methylprednisolone (Solu-Medrol) 40 mg IVP Q12 [facility] Montelukast Sodium (Singulair) 10 mg PO HS [facility] Last Admin: 07/24/18 22:32 Dose: 10 mg Multivitamins (Thera Tab) 1 tab PO DAILY [facility] Last Admin: 07/25/18 10:04 Dose: 1 tab Nicotine (Nicoderm Cq) 1 patch TD DAILY [facility] Last Admin: 07/25/18 10:03 Dose: 1 patch Ondansetron HCl (Zofran Inj) 4 mg IVP Q4H PRN PRN Reason: Nausea/Vomiting Pantoprazole Sodium (Protonix Ec Tab) 40 mg PO 0600 [facility] Last Admin: 07/25/18 06:46 Dose: 40 mg Thiamine HCl (Vitamin B1 Tab) 100 mg PO DAILY [facility] Last Admin: 07/25/18 10:04 Dose: 100 mg - Labs Labs: 07/25/18 08:00 07/25/18 08:00 APTT 29.6 Seconds (25.1-36.5) 07/24/18 06:30 - Constitutional Appears: No Acute Distress - Head Exam Head Exam: ATRAUMATIC, NORMOCEPHALIC - Eye Exam Eye Exam: EOMI Pupil Exam: PERRL - ENT Exam ENT Exam: Mucous Membranes Moist - Respiratory Exam Respiratory Exam: absent: Respiratory Distress Additional comments: B/L expiratory wheezes are appeciated that are improved from yesterday's examination - Cardiovascular Exam Cardiovascular Exam: REGULAR RHYTHM, +S1, +S2 - GI/Abdominal Exam GI & Abdominal Exam: Normal Bowel Sounds. absent: Firm, Guarding - Extremities Exam Extremities Exam: Normal Inspection. absent: Calf Tenderness - Neurological Exam Neurological Exam: Alert, Awake, Oriented x3 - Skin Skin Exam: Normal Color, Warm Assessment and Plan - Assessment and Plan (Free Text) Assessment: This is a 53 year old with PMH of COPD current smoker, heroin abuse, tobacco abuse and alcohol abuse presenting for management of COPD exacerbation. Breathing is improved, will taper down solumedrol today. COPD exacerbation -currently smokes 10 cigs/day with a 30 year history -continue duonebs q6 -taper down solumedrol to 40mg IVP q12 -continue singulair 10mg PO Acute Bronchitis -patient admitted to productive cough with yellow/green sputum on admission -patient admits to cough but denies sputum production today -day 3 azithromax -continue mucinex Leukocytosis -WBC today is 22.7 from 12.4 -likely 2/2 to steroids -tapered down steroids, will continue to monitor History of alcohol abuse -[facility] protocol -switch ativan to prn, patient is drowsy and no observed withdrawal symptoms noted -continue with thiamine and folic acid PPX with protonix and heparin Patient seen and discussed with attending, Dr. Art <Norma Art - Last Filed: 07/26/18 14:18> Objective - Vital Signs/Intake and Output Vital Signs (last 24 hours): Temp Pulse Resp BP Pulse Ox 98.3 F 67 19 145/90 100 07/26/18 08:49 07/26/18 08:49 07/26/18 08:49 07/26/18 08:49 07/25/18 17:31 Intake and Output: 07/26/18 07/26/18 06:59 18:59 Intake Total 375 Balance 375 - Medications Medications: Current Medications Albuterol/Ipratropium (Duoneb 3 Mg/0.5 Mg (3 Ml) Ud) 3 ml IH Q2H PRN PRN Reason: Shortness of Breath Albuterol/Ipratropium (Duoneb 3 Mg/0.5 Mg (3 Ml) Ud) 3 ml IH [id number] [facility] Last Admin: 07/26/18 14:00 Dose: 3 ml Azithromycin (Zithromax) 500 mg PO DAILY [facility] Folic Acid (Folic Acid) 1 mg PO DAILY [facility] Last Admin: 07/26/18 10:47 Dose: 1 mg Guaifenesin (Mucinex La) 600 mg PO BID [facility] Last Admin: 07/26/18 10:47 Dose: 600 mg Heparin Sodium (Porcine) (Heparin) 5,000 units SC Q8 [facility] PRN Reason: Protocol Last Admin: 07/26/18 13:36 Dose: 5,000 units Lorazepam (Ativan) 1 mg IVP Q6H PRN; Protocol PRN Reason: Symptoms of alcohol withdrawl Last Admin: 07/25/18 13:46 Dose: 1 mg Methylprednisolone (Solu-Medrol) 40 mg IVP Q12 [facility] Last Admin: 07/26/18 10:46 Dose: 40 mg Montelukast Sodium (Singulair) 10 mg PO HS [facility] Last Admin: 07/25/18 22:24 Dose: 10 mg Multivitamins (Thera Tab) 1 tab PO DAILY [facility] Last Admin: 07/26/18 10:47 Dose: 1 tab Nicotine (Nicoderm Cq) 1 patch TD DAILY [facility] Last Admin: 07/26/18 10:48 Dose: 1 patch Ondansetron HCl (Zofran Inj) 4 mg IVP Q4H PRN PRN Reason: Nausea/Vomiting Pantoprazole Sodium (Protonix Ec Tab) 40 mg PO 0600 [facility] Last Admin: 07/26/18 05:56 Dose: 40 mg Thiamine HCl (Vitamin B1 Tab) 100 mg PO DAILY [facility] Last Admin: 07/26/18 10:47 Dose: 100 mg - Labs Labs: 07/26/18 08:00 07/26/18 08:00 APTT 29.6 Seconds (25.1-36.5) 07/24/18 06:30 Attending/Attestation - Attestation I have personally seen and examined this patient.: Yes I have fully participated in the care of the patient.: Yes I have reviewed all pertinent clinical information, including history, physical exam and plan: Yes Notes (Text): Patient seen and examined by me at 10:00AM with resident 07/25/18. Case including HPI, physical exam, and assessment and plan discussed with resident. Agree with above with following additions/corrections. Patient is a 53 year old male with past medical history significant for COPD, tobacco abuse, alcohol abuse, and heroin abuse that presented to the emergency room with shortness of breath and chest tightness. Patient states he feels better. States he was unable to sleep and was brushing his teeth around 4AM when his heart started to beet fast. Shortness of breath improved. Chest tightness resolved. Cough is better. No chest pain. No headaches or dizziness. No nausea, vomiting, or abdominal pain. No fevers or chills. No dysuria. No diarrhea or constipation. Physical exam: General: Awake and alert, lying in bed in no acute distress HEENT: Normocephalic, atraumatic. Extraocular muscles intact. No scleral icterus. Oropharynx is pink and moist. No pharyngeal erythema or exudate appreciated. Neck is supple. Cardiovascular: Normal rhythm. Normal S1, S2. No murmurs, rubs, or gallops appreciated Pulmonary: Normal respiratory effort. Improved coarse breath sounds. Mild wheezing. No rales appreciated. Gastrointestinal: Soft, nondistended, nontender. Positive bowel sounds all 4 quadrants, no guarding. Musculoskeletal: Moves all extremities, no calf tenderness, no edema appreciated Central nervous system: CN2-12 grossly intact. AAO x 3, improved tremors noted in upper extremities Dermatologic: Skin warm and dry Assessment and plan: Patient is a 53 year old male with past medical history significant for COPD, tobacco abuse, alcohol abuse, and heroin abuse that presented to the emergency room with shortness of breath and chest tightness. 1. COPD exacerbation. Acute bronchitis. Afebrile. Improving Continue with Solu- Medrol, taper steroids. Continue nebulizer treatments. Continue with Zithromax and mucinex. Continue home Singulair. Patient counseled on tobacco cessation. 2. EtOH use/withdrawal. Continue CIWA protocol. Continue ativan prn. Continue thiamine, folic acid, multivitamin. Counseled on cessation. Continue to monitor for withdrawal symptoms. 3. Leukocytosis. Secondary to steroids. Continue to monitor. 4. Tobacco abuse. Counseled on cessation 5. GI/DVT prophylaxis. Protonix and heparin 6. Patient is a full code. Case was discussed in detail with patient regarding current diagnosis and treatment plan.
[2018-07-26] MEDS: Albuterol-Ipratrop 3 mg / 0.5 (3 ml) UD IH SCH ×4 (01:20→19:58)
[2018-07-26] MEDS: Pantoprazole 40 mg EC Tab PO SCH (05:56)
[2018-07-26 08:39] LABS: BASO # 0.01 K/mm3 (0.0-2.0); BASO % 0.1 % (0.0-3.0); GRAN # 11.93 (1.4-6.5); GRAN % 81.1 % (50.0-68.0); LYMPH % 13.3 % (22.0-35.0); MEAN CELL VOLUME 91.8 fl (80.0-105.0); MEAN CORPUSCULAR HEMOGLOBIN 30.5 pg (25.0-35.0); MEAN CORPUSCULAR HGB CONC 33.2 g/dl (31.0-37.0); MEAN PLATELET VOLUME 9.3 fl (7.0-11.0); MONO # 0.8 (0.1-0.6); MONO % 5.5 % (1.0-6.0); RBC 4.26 10^6/uL (3.5-6.1); RED CELL DISTRIBUTION WIDTH 14.8 % (11.5-14.5); WHITE BLOOD COUNT 14.7 10^3/ul (4.5-11.0)
[2018-07-26 08:51] LABS: ALB/GLOB RATIO 1.5 (1.1-1.8); ALBUMIN 4.3 g/dL (3.0-4.8); ALT/SGPT 22 U/L (7-56); AST/SGOT 20 U/L (17-59); BLOOD UREA NITROGEN 15 mg/dL (7-21); CALCIUM 9.4 mg/dL (8.4-10.5); GFR NON-AFRICAN AMERICAN > 60
[2018-07-26] MEDS: MethylPREDNISolone 40 mg Vial IVP SCH ×2 (10:46→21:28)
[2018-07-26] MEDS: guaiFENesin 600 mg ER Tab PO SCH ×2 (10:47→18:06)
[2018-07-26] MEDS: Multivitamin Therapeutic Tab PO SCH (10:47)
[2018-07-26] MEDS: Azithromycin 500MG/NS 250ml 500 MG/250 ML BAG IVPB SCH (10:48)
--- NOTE | 2018-07-26 17:38 | CP.PCM.PN ---
<Amado Hdz - Last Filed: 07/26/18 17:35> Subjective - Date & Time of Evaluation Date of Evaluation: 07/26/18 Time of Evaluation: 07:00 - Subjective Subjective: Internal Medicine Progress Note for Dr. Norma Hdz PGY1 53M seen and evaluated at bedside this morning. No acute events overnight. No complaints this morning except difficulty sleeping last night. States his breathing has improved. Tolerating his diet. Was able to ambulate on his own without difficulty. Denies shortness of breath, cough, chest pain, fever, chills , nausea, vomiting, abdominal pain, palpitations, or urinary symptoms. Objective - Vital Signs/Intake and Output Vital Signs (last 24 hours): Temp Pulse Resp BP Pulse Ox 98.1 F 91 H 20 140/93 H 91 L 07/26/18 16:20 07/26/18 16:20 07/26/18 16:20 07/26/18 16:20 07/26/18 16:20 Intake and Output: 07/26/18 07/26/18 06:59 18:59 Intake Total 375 Balance 375 - Medications Medications: Current Medications Albuterol/Ipratropium (Duoneb 3 Mg/0.5 Mg (3 Ml) Ud) 3 ml IH Q2H PRN PRN Reason: Shortness of Breath Albuterol/Ipratropium (Duoneb 3 Mg/0.5 Mg (3 Ml) Ud) 3 ml IH [id number] [facility] Last Admin: 07/26/18 14:00 Dose: 3 ml Azithromycin (Zithromax) 500 mg PO DAILY [facility] Folic Acid (Folic Acid) 1 mg PO DAILY [facility] Last Admin: 07/26/18 10:47 Dose: 1 mg Guaifenesin (Mucinex La) 600 mg PO BID [facility] Last Admin: 07/26/18 10:47 Dose: 600 mg Heparin Sodium (Porcine) (Heparin) 5,000 units SC Q8 ADRIAN PRN Reason: Protocol Last Admin: 07/26/18 13:36 Dose: 5,000 units Lorazepam (Ativan) 1 mg IVP Q6H PRN; Protocol PRN Reason: Symptoms of alcohol withdrawl Last Admin: 07/25/18 13:46 Dose: 1 mg Methylprednisolone (Solu-Medrol) 40 mg IVP Q12 [facility] Last Admin: 07/26/18 10:46 Dose: 40 mg Montelukast Sodium (Singulair) 10 mg PO HS [facility] Last Admin: 07/25/18 22:24 Dose: 10 mg Multivitamins (Thera Tab) 1 tab PO DAILY [facility] Last Admin: 07/26/18 10:47 Dose: 1 tab Nicotine (Nicoderm Cq) 1 patch TD DAILY [facility] Last Admin: 07/26/18 10:48 Dose: 1 patch Ondansetron HCl (Zofran Inj) 4 mg IVP Q4H PRN PRN Reason: Nausea/Vomiting Pantoprazole Sodium (Protonix Ec Tab) 40 mg PO 0600 [facility] Last Admin: 07/26/18 05:56 Dose: 40 mg Thiamine HCl (Vitamin B1 Tab) 100 mg PO DAILY [facility] Last Admin: 07/26/18 10:47 Dose: 100 mg - Labs Labs: 07/26/18 08:00 07/26/18 08:00 APTT 29.6 Seconds (25.1-36.5) 07/24/18 06:30 - Constitutional Appears: Well, Non-toxic, No Acute Distress - Head Exam Head Exam: ATRAUMATIC, NORMAL INSPECTION, NORMOCEPHALIC - Eye Exam Eye Exam: EOMI Pupil Exam: PERRL - ENT Exam ENT Exam: Mucous Membranes Moist - Respiratory Exam Respiratory Exam: Wheezes, NORMAL BREATHING PATTERN. absent: Accessory Muscle Use, Respiratory Distress - Cardiovascular Exam Cardiovascular Exam: REGULAR RHYTHM, +S1, +S2. absent: Murmur - GI/Abdominal Exam GI & Abdominal Exam: Soft, Normal Bowel Sounds. absent: Tenderness - Extremities Exam Extremities Exam: absent: Calf Tenderness, Pedal Edema - Neurological Exam Neurological Exam: Alert, Awake, Oriented x3 - Psychiatric Exam Psychiatric exam: Normal Affect, Normal Mood - Skin Skin Exam: Dry, Intact, Normal Color, Warm Assessment and Plan - Assessment and Plan (Free Text) Assessment: 53M, PMH of COPD, tobacco abuse, heroin abuse, and alcohol abuse presents with shortness of breath, admitted for management of COPD exacerbation. Plan: COPD exacerbation - Likely secondary to smoking history - Continue duonebs q6 - Continue Solumedrol to 40mg IVP q12, will taper - Continue singulair 10mg PO - Pending physical therapy evaluation (6 minute walk test) Acute Bronchitis - Patient admitted to productive cough with yellow/green sputum on admission - CXR (07/23): No active disease - Azithromycin Day#4 - Continue with Mucinex BID Leukocytosis - Likely secondary to steroid administration, afebrile - WBC today is 14.7 from 22.7 - Will continue to monitor History of alcohol abuse - CIWA protocol - Required one dose Ativan overnight - Continue with multivitamin, thiamine, and folic acid - Advised on alcohol cessation Tobacco Abuse - Advised on smoking cessation - Continue with Nicotine patch GI: Protonix DVT: Heparin Diet: HHD Patient seen and discussed with attending, Dr. Rubens Hdz PGY1 <Norma Art R - Last Filed: 07/27/18 14:08> Objective - Vital Signs/Intake and Output Vital Signs (last 24 hours): Temp Pulse Resp BP Pulse Ox 97.5 F L 60 19 140/95 H 97 07/27/18 06:00 07/27/18 06:00 07/27/18 06:00 07/27/18 06:00 07/27/18 06:00 - Labs Labs: 07/27/18 09:15 07/27/18 09:15 APTT 29.6 Seconds (25.1-36.5) 07/24/18 06:30 Attending/Attestation - Attestation I have personally seen and examined this patient.: Yes I have fully participated in the care of the patient.: Yes I have reviewed all pertinent clinical information, including history, physical exam and plan: Yes Notes (Text): Patient seen and examined by me at 8:40AM with resident 07/26/18. Case including HPI, physical exam, and assessment and plan discussed with resident. Agree with above with following additions/corrections. Patient is a 53 year old male with past medical history significant for COPD, tobacco abuse, alcohol abuse, and heroin abuse that presented to the emergency room with shortness of breath and chest tightness. Patient states he is doing much better. Cough has improved. Shortness of breath has improved. Patient is ambulating well without any shortness of breath. No more chest tightness. No chest pain. No headaches or dizziness. No nausea, vomiting, or abdominal pain. No fevers or chills. No dysuria. No diarrhea or constipation. Physical exam: General: Awake and alert, sitting up in bed in no acute distress HEENT: Normocephalic, atraumatic. Extraocular muscles intact. No scleral icterus. Oropharynx is pink and moist. No pharyngeal erythema or exudate appreciated. Neck is supple. Cardiovascular: Normal rhythm. Normal S1, S2. No murmurs, rubs, or gallops appreciated Pulmonary: Normal respiratory effort. Improved breath sounds. Still with some coarse breath sounds. No wheezing or rales appreciated. Gastrointestinal: Soft, nondistended, nontender. Positive bowel sounds all 4 quadrants, no guarding. Musculoskeletal: Moves all extremities, no calf tenderness, no edema appreciated Central nervous system: CN2-12 grossly intact. AAO x 3. No tremors noted in the upper extremities today. Dermatologic: Skin warm and dry Assessment and plan: Patient is a 53 year old male with past medical history significant for COPD, tobacco abuse, alcohol abuse, and heroin abuse that presented to the emergency room with shortness of breath and chest tightness. 1. COPD exacerbation. Acute bronchitis. Afebrile. Resolving. Continue with Solu- Medrol, taper steroids. Continue nebulizer treatments. Continue Zithromax and mucinex. Continue Singulair. Patient counseled on tobacco cessation. 2. EtOH use/withdrawal. Continue CIWA protocol. Continue ativan prn. Continue thiamine, folic acid, multivitamin. Counseled on cessation. Continue to monitor for withdrawal symptoms. 3. Leukocytosis. Secondary to steroids. Improved. Continue to monitor. 4. Tobacco abuse. Counseled on cessation 5. GI/DVT prophylaxis. Protonix and heparin 6. Patient is a full code. Case was discussed in detail with patient regarding current diagnosis and treatment plan.
[2018-07-27] MEDS: Albuterol-Ipratrop 3 mg / 0.5 (3 ml) UD IH SCH ×2 (02:15→08:04)
[2018-07-27] MEDS: Pantoprazole 40 mg EC Tab PO SCH (05:08)
[2018-07-27 08:01] VITALS: BP 140/95; PULSE 60; RESP 19; TEMP 97.5; O2SAT 97
[2018-07-27 09:36] LABS: BASO # 0.02 K/mm3 (0.0-2.0); BASO % 0.1 % (0.0-3.0); EOS % 0.1 % (1.5-5.0); GRAN # 12.25 (1.4-6.5); GRAN % 79.5 % (50.0-68.0); HEMOGLOBIN 14.6 g/dL (14.0-18.0); LYMPH # 2.5 (1.2-3.4); LYMPH % 16.5 % (22.0-35.0); MEAN CELL VOLUME 92.1 fl (80.0-105.0); MEAN CORPUSCULAR HEMOGLOBIN 31.2 pg (25.0-35.0); MEAN CORPUSCULAR HGB CONC 33.9 g/dl (31.0-37.0); MEAN PLATELET VOLUME 9.2 fl (7.0-11.0); MONO # 0.6 (0.1-0.6); MONO % 3.8 % (1.0-6.0); RBC 4.68 10^6/uL (3.5-6.1); RED CELL DISTRIBUTION WIDTH 14.6 % (11.5-14.5); WHITE BLOOD COUNT 15.4 10^3/ul (4.5-11.0)
[2018-07-27] MEDS: MethylPREDNISolone 40 mg Vial IVP SCH (09:43)
[2018-07-27] MEDS: Multivitamin Therapeutic Tab PO SCH (09:44)
[2018-07-27] MEDS: guaiFENesin 600 mg ER Tab PO SCH (09:44)
[2018-07-27 10:02] LABS: ALB/GLOB RATIO 1.5 (1.1-1.8); ALBUMIN 4.8 g/dL (3.0-4.8); ALT/SGPT 22 U/L (7-56); AST/SGOT 24 U/L (17-59); BLOOD UREA NITROGEN 18 mg/dL (7-21); CALCIUM 9.9 mg/dL (8.4-10.5); GFR NON-AFRICAN AMERICAN > 60
--- NOTE | 2018-07-27 19:04 | CP.PCM.DIS ---
Provider - Provider Date of Admission: 07/24/18 14:51 Attending physician: Norma Art DO Primary care physician: Dr. West Time Spent in preparation of Discharge (in minutes): 35 Hospital Course - Lab Results Lab Results: Most Recent Lab Values WBC 15.4 10^3/ul (4.5-11.0) H 07/27/18 09:15 RBC 4.68 10^6/uL (3.5-6.1) 07/27/18 09:15 Hgb 14.6 g/dL (14.0-18.0) 07/27/18 09:15 Hct 43.1 % (42.0-52.0) 07/27/18 09:15 MCV 92.1 fl (80.0-105.0) 07/27/18 09:15 MCH 31.2 pg (25.0-35.0) 07/27/18 09:15 MCHC 33.9 g/dl (31.0-37.0) 07/27/18 09:15 RDW 14.6 % (11.5-14.5) H 07/27/18 09:15 Plt Count 357 10^3/uL (120.0-450.0) 07/27/18 09:15 MPV 9.2 fl (7.0-11.0) 07/27/18 09:15 Gran % 79.5 % (50.0-68.0) H 07/27/18 09:15 Lymph % (Auto) 16.5 % (22.0-35.0) L 07/27/18 09:15 Vernon % (Auto) 3.8 % (1.0-6.0) 07/27/18 09:15 Eos % (Auto) 0.1 % (1.5-5.0) L 07/27/18 09:15 Baso % (Auto) 0.1 % (0.0-3.0) 07/27/18 09:15 Gran # 12.25 (1.4-6.5) H 07/27/18 09:15 Lymph # (Auto) 2.5 (1.2-3.4) 07/27/18 09:15 Vernon # (Auto) 0.6 (0.1-0.6) 07/27/18 09:15 Eos # (Auto) 0.0 (0.0-0.7) 07/27/18 09:15 Baso # (Auto) 0.02 K/mm3 (0.0-2.0) 07/27/18 09:15 Neutrophils % (Manual) 87 % (50.0-70.0) H 07/25/18 08:00 Lymphocytes % (Manual) 8 % (22.0-35.0) L 07/25/18 08:00 Monocytes % (Manual) 5 % (1.0-6.0) 07/25/18 08:00 Platelet Evaluation Normal (NORMAL) 07/25/18 08:00 APTT 29.6 Seconds (25.1-36.5) 07/24/18 06:30 Sodium 136 mmol/L (132-148) 07/27/18 09:15 Potassium 4.0 mmol/L (3.6-5.0) 07/27/18 09:15 Chloride 96 mmol/L (98-107) L 07/27/18 09:15 Carbon Dioxide 25 mmol/L (21-33) 07/27/18 09:15 Anion Gap 18 (10-20) 07/27/18 09:15 BUN 18 mg/dL (7-21) 07/27/18 09:15 Creatinine 0.6 mg/dl (0.8-1.5) L 07/27/18 09:15 Est GFR ( Amer) > 60 07/27/18 09:15 Est GFR (Non-Af Amer) > 60 07/27/18 09:15 Random Glucose 213 mg/dL (70-110) H 07/27/18 09:15 Calcium 9.9 mg/dL (8.4-10.5) 07/27/18 09:15 Phosphorus 4.6 mg/dL (2.5-4.5) H 07/26/18 08:00 Magnesium 1.7 mg/dL (1.7-2.2) 07/26/18 08:00 Total Bilirubin 0.4 mg/dL (0.2-1.3) 07/27/18 09:15 AST 24 U/L (17-59) 07/27/18 09:15 ALT 22 U/L (7-56) 07/27/18 09:15 Alkaline Phosphatase 55 U/L (38-126) 07/27/18 09:15 Troponin I < 0.01 ng/mL 07/23/18 14:35 Total Protein 8.0 g/dL (5.8-8.3) 07/27/18 09:15 Albumin 4.8 g/dL (3.0-4.8) 07/27/18 09:15 Globulin 3.2 gm/dL 07/27/18 09:15 Albumin/Globulin Ratio 1.5 (1.1-1.8) 07/27/18 09:15 Alcohol, Quantitative < 10 mg/dL (0-10) 07/23/18 21:11 - Hospital Course Hospital Course: This is a 53 year old male with PMH of COPD, alcohol abuse, heroin use and active smoker who presented to the ED on 07/23 complaining of 1 day history of worsening shortness of breath and chest tightness. Pt states that he tried using Ventolin rescue inhaler at home 3 times for symptoms without relief, thus decided to come to the ED. Reports feeling short of breath after walking 10 blocks outside. Reports productive cough with green sputum since day before. CXR in ED showed no active disease. Patient was subsequently placed on azithromax, duonebs, solumedrol 40mg q8 and singulair. Patient was also placed on CIWA protocol due to history of alcohol use and given ativan 1mg q8. Nicotine patch was given for history of smoking. Patient continue breathing treatments over the following 4 days with great improvement in symptoms. Patient was seen this morning and per patient, is now at his baseline in breathing. He needs one more day of azithromax to complete his 5 day course. Will prescribe steroid taper. Patient to follow up with PCP. Smoking counseling given to patient. Discharge Exam - Head Exam Head Exam: ATRAUMATIC, NORMAL INSPECTION, NORMOCEPHALIC - Eye Exam Eye Exam: EOMI Pupil Exam: PERRL - ENT Exam ENT Exam: Mucous Membranes Moist - Respiratory Exam Respiratory Exam: NORMAL BREATHING PATTERN. absent: Wheezes, Respiratory Distress Additional comments: CTA B/L - Cardiovascular Exam Cardiovascular Exam: REGULAR RHYTHM, +S1, +S2 - GI/Abdominal Exam GI & Abdominal Exam: Normal Bowel Sounds, Soft. absent: Firm, Guarding - Extremities Exam Extremities exam: normal inspection - Back Exam Back exam: NORMAL INSPECTION - Neurological Exam Neurological exam: Alert, Altered, Oriented x3 - Skin Skin Exam: Normal Color, Warm Discharge Plan - Discharge Medications Prescriptions: Azithromycin [Zithromax] 500 mg PO DAILY #1 tab Folic Acid 1 mg PO DAILY #30 tab guaiFENesin [Mucinex LA] 600 mg PO BID #10 tab Multivitamin Therapeutic Tab [Thera Tab] 1 tab PO DAILY #30 tab Pantoprazole [Protonix EC Tab] 40 mg PO 0600 #15 ect Tiotropium [Spiriva] 18 mcg IH DAILY 30 Days cap - Follow Up Plan Condition: GOOD Disposition: HOME/ ROUTINE Instructions: COPD Including Emphysema (DC), Quitting Smoking Additional Instructions: 1) Please follow up with your Primary Medical Doctor, Dr. Lebron, within 3- 5 days of discharge. 2) You are to take Prednisone as directed. Complete your antibiotic course. You will need to take one pill on 07/28/18 of your antibiotic. 3) Please return to the nearest ED for any recurrence of symptoms. 4) Please resume your home medications. 5) Please quit smoking. Referrals: Santi West MD, PhD [Family Provider] -
== END 2018-07-27 12:43 | disposition home or self-care (01) | DRG 88 ==
LOC: ED 12:47 → ERH 15:34 → 2RSO 19:02 → OBSVTOIN 07-24 14:51 → 3RSO 07-25 15:18
PROVIDERS: ADMIT Hospitalist; ATTEND Hospitalist
DX: J44.1 Chronic obstructive pulmonary disease with (acute) exacerbation (principal); F11.10 Opioid abuse, uncomplicated; F10.239 Alcohol dependence with withdrawal, unspecified; F17.210 Nicotine dependence, cigarettes, uncomplicated; J20.9 Acute bronchitis, unspecified; J44.0 Chronic obstructive pulmonary disease with (acute) lower respiratory infection; G47.30 Sleep apnea, unspecified; D72.829 Elevated white blood cell count, unspecified; T38.0X5A Adverse effect of glucocorticoids and synthetic analogues, initial encounter; Z87.01 Personal history of pneumonia (recurrent)

== ENCOUNTER 2018-10-04 13:39 | Emergency (ER) | payer OTHER ==
[2018-10-04 13:46] VITALS: BMI 27.8
[2018-10-04] MEDS ORDERED: Magnesium Sulfate 2 GM in Sodium Chloride 0.9% 100 ML IVPB ONE (13:57)
[2018-10-04] MEDS ORDERED: Albuterol-Ipratrop 3 mg / 0.5 (3 ml) UD IH STA (13:57)
--- NOTE | 2018-10-04 14:07 | ED PDOC ---
Arrival/HPI - General Chief Complaint: Shortness Of Breath Historian: Patient - History of Present Illness Narrative History of Present Illness (Text): 10/04/18 13:58 A 53 year old male, a current smoker - 2 cigarettes a day, whose past medical history includes COPD, presents to the emergency department complaining of shortness of breath since 3 days ago. Patient reports he was caught in rain 3 days ago resulting in increased difficulty breathing since then. Patient reports experiencing associated headache, non-productive cough, generalized weakness and body aches. Patient notes he currently uses a ventolin pump and takes singulair for COPD. Patient notes he used his ventolin for symptoms to no relief. Patient denies any fever, chills, chest pain, diarrhea, nausea, vomiting, urinary symptoms, back pain, neck pain, dizziness, or any other complaints. PMD: Dr. Cedeno [place] Time/Duration: Other (3 days ago) Symptom Onset: Gradual Symptom Course: Unchanged Activities at Onset: Light Context: Home Past Medical History - Provider Review Nursing Documentation Reviewed: Yes - Infectious Disease Hx of Infectious Diseases: None - Tetanus Immunization Tetanus Immunization: Unknown - Past Medical History Past Medical History: Non-Contributing - Cardiac Hx Cardiac Disorders: No - Pulmonary Hx Respiratory Disorders: Yes Hx Chronic Obstructive Pulmonary Disease (COPD): Yes Hx Emphysema: Yes Hx Pneumonia: Yes Hx Sleep Apnea: Yes - Neurological Hx Neurological Disorder: No - HEENT Hx HEENT Disorder: No - Renal Hx Renal Disorder: No Hx Dialysis: No - Endocrine/Metabolic Hx Endocrine Disorders: No - Hematological/Oncological Hx Blood Disorders: No - Integumentary Hx Dermatological Disorder: No - Musculoskeletal/Rheumatological Hx Musculoskeletal Disorders: Yes Hx Back Pain: Yes Hx Falls: No - Gastrointestinal Hx Gastrointestinal Disorders: No - Genitourinary/Gynecological Hx Genitourinary Disorders: No Hx Sexually Transmitted Diseases: No - Psychiatric Hx Psychophysiologic Disorder: Yes Hx Depression: Yes Hx Substance Use: Yes (use heroin Occasionally) - Past Surgical History Past Surgical History: No Previous - Anesthesia Hx Anesthesia: No - Suicidal Assessment Feels Threatened In Home Enviroment: No Family/Social History - Physician Review Nursing Documentation Reviewed: Yes Family/Social History: No Known Family HX Smoking Status: Current Some Days Smoker Hx Alcohol Use: Yes Amount per day: 12 Hx Substance Use: Yes (use heroin Occasionally) Substance used: HEROIN Hx Substance Use Treatment: Yes (had detox) Allergies/Home Meds Allergies/Adverse Reactions: Allergies No Known Allergies Allergy (Verified 10/04/18 13:46) Review of Systems - Physician Review All systems were reviewed & negative as marked: Yes - Review of Systems Constitutional: absent: Fevers, Night Sweats Respiratory: SOB, Cough (+non-productive cough) Cardiovascular: absent: Chest Pain Gastrointestinal: absent: Diarrhea, Nausea, Vomiting Musculoskeletal: Myalgias. absent: Back Pain, Neck Pain Neurological: Headache. absent: Dizziness Physical Exam Vital Signs Reviewed: Yes Vital Signs Temp Pulse Resp BP Pulse Ox 10/04/18 13:53 21 95 10/04/18 13:46 98.5 F 112 H 21 131/78 95 Temperature: Afebrile Blood Pressure: Normal Pulse: Tachycardic Respiratory Rate: Normal Appearance: Positive for: Well-Appearing, Non-Toxic, Comfortable Pain Distress: None Mental Status: Positive for: Alert and Oriented X 3 - Systems Exam Head: Present: Atraumatic, Normocephalic Pupils: Present: PERRL Extroacular Muscles: Present: EOMI Conjunctiva: Present: Normal Mouth: Present: Moist Mucous Membranes Neck: Present: Normal Range of Motion Respiratory/Chest: Present: Good Air Exchange, Wheezes (+expiratory bilateral wheezing) Cardiovascular: Present: Regular Rate and Rhythm, Normal S1, S2. No: Murmurs Abdomen: No: Tenderness, Distention, Peritoneal Signs Back: Present: Normal Inspection Upper Extremity: Present: Normal Inspection. No: Cyanosis, Edema Lower Extremity: Present: Normal Inspection. No: Edema Neurological: Present: GCS=15, CN II-XII Intact, Speech Normal Skin: Present: Warm, Dry, Normal Color. No: Rashes Psychiatric: Present: Alert, Oriented x 3, Normal Insight, Normal Concentration Medical Decision Making ED Course and Treatment: 10/04/18 14:00 Impression: 53 year old male presenting to the emergency room for shortness of breath Plan: -- EKG -- Labs -- CBC -- Chest X-ray -- Duoneb -- IVPB -- Solumedrol -- Influenza A B -- Reassess and disposition Prior Visits: Notes and results from previous visits were reviewed. Patient was last seen in the emergency department on 07/23/18 for shortness of breath and chest tightness and was admitted to the hospital with a diagnosis for COPD exacerbation for further observation. Progress Notes: 10/04/18 14:02 EKG: Ordered, reviewed, and independently interpreted the EKG. Rate : 115 BPM Rhythm : Sinus tachycardia Interpretation : No ST-segment elevations or depressions, no T-wave inversions, normal intervals. 10/04/18 14:55 Procedure: Chest X-ray Impression: No active disease. Dictator: Vick Madden 10/04/18 16:56 Upon reassessment, patient is feeling better and is requesting to go home. - Scribe Statement The provider has reviewed the documentation as recorded by the Scribe Rosa Sequeira All medical record entries made by the Scribe were at my direction and personally dictated by me. I have reviewed the chart and agree that the record accurately reflects my personal performance of the history, physical exam, medical decision making, and the department course for this patient. I have also personally directed, reviewed, and agree with the discharge instructions and disposition. Disposition/Present on Arrival - Present on Arrival Any Indicators Present on Arrival: No History of DVT/PE: No History of Uncontrolled Diabetes: No Urinary Catheter: No History of Decub. Ulcer: No History Surgical Site Infection Following: None - Disposition Have Diagnosis and Disposition been Completed?: Yes Diagnosis: COPD (chronic obstructive pulmonary disease) Disposition: HOME/ ROUTINE Disposition Time: 16:10 Condition: IMPROVED Discharge Instructions (ExitCare): COPD Including Emphysema (DC) Additional Instructions: GERONIMO TRIANA, thank you for letting us take care of you today. Your provider was Regan Kaufman DO and you were treated for COPD. The emergency medical care you received today was directed at your acute symptoms. If you were prescribed any medication, please fill it and take as directed. It may take several days for your symptoms to resolve. Return to the Emergency Department if your symptoms worsen, do not improve, or if you have any other problems. Please contact your doctor or call one of the physicians/clinics you have been referred to that are listed on the Patient Visit Information form that is included in your discharge packet. Bring any paperwork you were given at discharge with you along with any medications you are taking to your follow up visit. Our treatment cannot replace ongoing medical care by a primary care provider outside of the emergency department. Thank you for allowing the [facility] team to be part of your care today. Follow up with your primary care doctor in 2-3 days for re-evaluation and further management. Prescriptions: Azithromycin [Zithromax] 250 mg PO DAILY #6 tab predniSONE [Prednisone] 40 mg PO DAILY #10 tab Referrals: Fam Moore, [Non-Staff] - Follow up with primary Forms: [employer] ([place])
--- NOTE | 2018-10-04 14:48 | RAD ---
Date of service: 10/04/2018 HISTORY: cough r/o infiltrate COMPARISON: 07/23/2018 FINDINGS: LUNGS: No active pulmonary disease. PLEURA: No significant pleural effusion identified, no pneumothorax apparent. CARDIOVASCULAR: No aortic atherosclerotic calcification present. Normal cardiac size. No pulmonary vascular congestion. OSSEOUS STRUCTURES: No significant abnormalities. VISUALIZED UPPER ABDOMEN: Normal. OTHER FINDINGS: None. IMPRESSION: No active disease.
[2018-10-04 14:57] LABS: BASO # 0.08 K/mm3 (0.0-2.0); BASO % 1.1 % (0.0-3.0); EOS # 0.2 (0.0-0.7); EOS % 2.7 % (1.5-5.0); GRAN # 4.33 (1.4-6.5); GRAN % 57.4 % (50.0-68.0); HEMOGLOBIN 14.6 g/dL (14.0-18.0); LYMPH # 1.3 (1.2-3.4); LYMPH % 17.4 % (22.0-35.0); MEAN CELL VOLUME 95.1 fl (80.0-105.0); MEAN CORPUSCULAR HEMOGLOBIN 32.3 pg (25.0-35.0); MEAN PLATELET VOLUME 10.3 fl (7.0-11.0); MONO # 1.6 (0.1-0.6); MONO % 21.4 % (1.0-6.0); PLATELET COUNT 291 10^3/uL (120.0-450.0); RBC 4.52 10^6/uL (3.5-6.1); RED CELL DISTRIBUTION WIDTH 13.7 % (11.5-14.5); WHITE BLOOD COUNT 7.5 10^3/uL (4.5-11.0)
[2018-10-04 14:58] LABS: ALB/GLOB RATIO 1.5 (1.1-1.8); ALBUMIN 4.7 g/dL (3.0-4.8); ALT/SGPT 36 U/L (7-56); AST/SGOT 31 U/L (17-59); BLOOD UREA NITROGEN 14 mg/dL (7-21); CALCIUM 9.4 mg/dL (8.4-10.5); GFR NON-AFRICAN AMERICAN > 60
[2018-10-04 15:10] LABS: TROPONIN I < 0.01 ng/mL
[2018-10-04] MEDS ORDERED: Magnesium Sulfate 2 gm/50 ml 2 GM/50 ML BAG IV ONE ×2 (15:15)
[2018-10-04 15:37] LABS: BAND 1 % (0-2); BASOPHIL 1 % (0.0-1.0); EOSINOPHIL 5 % (0.0-3.0); LYMPHOCYTE 15 % (22.0-35.0); MONOCYTE 13 % (1.0-6.0); NEUTROPHIL 65 % (50.0-70.0); PLATELET ESTIMATE NORMAL (NORMAL)
[2018-10-04 17:08] VITALS: BP 130/74; PULSE 99; RESP 18; TEMP 98.2; O2SAT 98
--- NOTE | 2018-10-04 18:09 | CARD ---
APPROVED REPORT Date of service: 10/04/2018 EKG Measurement Heart [id number] ID [id number] <Conclusion> Sinus tachycardia Otherwise normal ECG
== END 2018-10-04 17:08 | disposition home or self-care (01) ==
LOC: ED 13:39
DX: J44.9 Chronic obstructive pulmonary disease, unspecified (principal); F17.210 Nicotine dependence, cigarettes, uncomplicated
CPT/HCPCS: 71045; 80053; 82550; 83615; 83735; 84484; 85025; 87804; 93005; 94640; 96374; 96375; 99282; J1885; J2930